=== PATIENT | female | born 1965 | race American Indian/Alaskan Native ===

== ENCOUNTER 2016-12-03 09:46 | Outpatient (CLI) | payer OTHER ==
--- NOTE | 2016-12-03 10:36 | Mammography Report ---
Bilateral mammogram: Compared to 07/14/14. Findings: Heterogeneous breast parenchyma bilaterally. Benign calcifications left breast without interval change. Focal new 3 mm asymmetry upper anterior left breast. Benign axillary nodes. Impression: Focal new asymmetry upper left breast. Recommend spot magnification a series of examination. BI-RADS CATEGORY: 0 = Needs additional imaging evaluation ACR BI-RADS MAMMOGRAPHIC CODES: 0 = Needs additional imaging evaluation; 1 = Negative; 2 = Benign; 3 = Probably benign; 4 = Suspicious; 5 = Malignant; 6 = Known biopsy-proven malignancy COMMENT: 1. Dense breast tissue, i.e., adenosis, fibrocystic changes, etc., may obscure an underlying neoplasm. 2. Approximately 10% of cancers are not detected with mammography. 3. A negative mammography report should not delay biopsy if a clinically suspicious mass is present. COMMENT: Patient follow-up letters are generated in [employer].
== END 2016-12-03 09:47 | disposition home or self-care (01) ==
LOC: MAMMO 09:46
PROVIDERS: ATTEND Obstetrics & Gynecology
DX: Z12.31 Encounter for screening mammogram for malignant neoplasm of breast (principal)
CPT/HCPCS: 77067; G0202

== ENCOUNTER 2018-06-30 13:39 | Outpatient (CLI) | payer OTHER ==
--- NOTE | 2018-07-01 09:11 | Mammography Report ---
BILATERAL DIGITAL SCREENING MAMMOGRAM with CAD: 06/30/18 13:39:00 CLINICAL: Routine screening. COMPARISON:12/03/16 and 07/14/14. She also has had a more recent mammogram at [facility]. FINDINGS: The breasts are heterogeneously dense, which may obscure small masses. Right asymmetries on the MLO view are new and require additional evaluation.No architectural distortion or suspicious calcifications.The left breast is negative with stable benign calcifications. IMPRESSION: Right asymmetries requiring further workup. BI-RADS CATEGORY: 0 -- Additional Imaging Evaluation Required RECOMMENDATION: Comparison with the more recent mammogram. ACR BI-RADS MAMMOGRAPHIC CODES: 0 = Needs additional imaging evaluation; 1 = Negative; 2 = Benign; 3 = Probably benign; 4 = Suspicious; 5 = Malignant; 6 = Known biopsy-proven malignancy COMMENT: 1. Dense breast tissue, i.e., adenosis, fibrocystic changes, etc., may obscure an underlying neoplasm. 2. Approximately 10% of cancers are not detected with mammography. 3. A negative mammography report should not delay biopsy if a clinically suspicious mass is present. COMMENT: Patient follow-up letters are generated via our [employer] application.
== END 2018-06-30 13:40 | disposition home or self-care (01) ==
LOC: MAMMO 13:39
PROVIDERS: ATTEND Obstetrics & Gynecology
DX: Z12.31 Encounter for screening mammogram for malignant neoplasm of breast (principal)
CPT/HCPCS: 77067